=== PATIENT | female | born 1995 | race Caucasian/White ===

== ENCOUNTER 2024-05-28 16:33 | Emergency (ER) | payer BC, OTHER ==
[2024-05-28 16:52] VITALS: BP 121/85; PULSE 91; RESP 18; TEMP 98.4; BMI 35.2
== END 2024-05-28 17:40 | disposition home or self-care (01) ==
LOC: FER 16:33
DX: R42 Dizziness and giddiness (principal); H21.563 Pupillary abnormality, bilateral
CPT/HCPCS: 99283-25